=== PATIENT | male | born 1985 | race African-American/Black ===

== ENCOUNTER 2017-08-22 20:45 | Emergency (ER) | payer MEDICAID, OTHER ==
[~2017-08-22] VITALS: Ht 170.2 cm; Wt 65.8 kg
[~2017-08-22 20:45] MED LIST: CYCLOBENZAPRINE10 MG ORAL; IBUPROFEN600 MG ORAL
[2017-08-22] MEDS ORDERED: IBUPROFEN600 MG ORAL (21:47)
[2017-08-22] MEDS ORDERED: ROBAXIN-750750 MG PO (21:47)
[2017-08-22 22:11] VITALS: BP 113/75
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
== END 2017-08-22 22:05 | disposition home or self-care (01) ==
LOC: EMR 22:00
DX: S13.9XXA Sprain of joints and ligaments of unspecified parts of neck, initial encounter (principal); S16.1XXA Strain of muscle, fascia and tendon at neck level, initial encounter; V43.52XA Car driver injured in collision with other type car in traffic accident, initial encounter; Y92.410 Unspecified street and highway as the place of occurrence of the external cause; J45.909 Unspecified asthma, uncomplicated
CPT/HCPCS: 99283